=== PATIENT | male | born 1980 | race Caucasian/White ===

== ENCOUNTER → 2018-10-17 | Day surgery (SDC) | payer BC ==
[~2018-10-17] MED LIST: CEFTRIAXONE SOD 1 GM/NS 50 ML 50 ML IV ONE; DEXAMETHASONE SOD PHOS INJ 4 MG/ML VIAL ONE; FENTANYL CITRATE/PF 100MCG/2 ML INJ ONE; IOPAMIDOL 610MG/1ML 300 MG/ML VIAL IV ONE; LIDOCAINE HCL 2% LOCAL INJ 5 ML SDV VIAL INJ ONE; MIDAZOLAM HCL 2 MG/2 ML VIAL ONE; ONDANSETRON HCL INJ 2MG/ML 2ML 2 MG/ML VIAL ONE; PROPOFOL IV EMULSION 10 MG/ML 20 ML VIAL ONE; SEVOFLURANE INHAL SOLN 250 ML PEN BTL ONE
--- OUTSIDE RECORDS SUMMARY | 2018-10-17 12:16 | XMS REPORT | Continuity of Care Document ---
Author Author [facility] Interface Address Unknown Phone Unavailable Problems Problem Status Onset Date Classification Date Reported Comments Source Body mass index 30+ - obesity 05/03/2018 Diagnosis 05/03/2018 [facility] Acute tonsillitis 05/03/2018 Diagnosis 05/03/2018 [facility] Acute sinusitis 01/23/2018 Diagnosis 01/23/2018 [facility] Headache 01/23/2018 Diagnosis 01/23/2018 [facility] Acute pharyngitis 01/23/2018 Diagnosis 01/23/2018 [facility] Contact dermatitis due to poison cali 05/26/2017 Diagnosis 05/26/2017 [facility] Medications Medication Details Route Status Patient Instructions Ordering Provider Order Date Source Medrol (Nik) 4 mg tablets in a dose pack Medrol (Nik) 4 mg tablets in a dose pack Take by oral route as directed. Active [facility] Triamcinolone Acetonide 1 MG/ML Topical Cream triamcinolone acetonide 0.1 % topical cream APPLY A THIN LAYER TO THE AFFECTED AREA(S) BY TOPICAL ROUTE 2 TIMES PER DAY Active [facility] Zyrtec Zyrtec Active [facility] Amoxicillin 875 MG / Clavulanate 125 MG Oral Tablet [Augmentin] Augmentin 875 mg-125 mg tablet Take 1 tablet twice a day by oral route as directed for 10 days. Active [facility] Amoxicillin 875 MG Oral Tablet amoxicillin 875 mg tablet Take 1 tablet every 12 hours by oral route for 10 days. Active [facility] Allergies, Adverse Reactions, Alerts Substance Category Reaction Severity Reaction type Status Date Reported Comments Source Iodine Allergy to substance 05/26/2017 [facility] Shellfish Derived Allergy to substance 05/26/2017 [facility] Immunizations Immunization Date Given Site Status Last Updated Comments Source influenza, injectable, quadrivalent 04/23/2017 completed [facility] Results Order Name Results Value Reference Range Date Interpretation Comments Source Influenza A negative 05/03/2018 [facility] Influenza B negative 05/03/2018 [facility] RESULT negative 05/03/2018 [facility] RESULT negative 05/03/2018 [facility] SWAB LOCATION Left and Right tonsillar pillars 05/03/2018 [facility] RESULT negative 01/23/2018 [facility] SWAB LOCATION Left and Right tonsillar pillars 01/23/2018 [facility] Vital Signs Vital Sign Value Date Comments Source Diastolic (mm Hg) 70 05/03/2018 [facility] Height 76 05/03/2018 [facility] Systolic (mm Hg) 118 05/03/2018 [facility] Weight 290 05/03/2018 [facility] Diastolic (mm Hg) 78 01/23/2018 [facility] Height 76 01/23/2018 [facility] Systolic (mm Hg) 118 01/23/2018 [facility] Weight 290 01/23/2018 [facility] Diastolic (mm Hg) 80 05/26/2017 [facility] Height 76 05/26/2017 [facility] Systolic (mm Hg) 118 05/26/2017 [facility] Weight 283 05/26/2017 [facility] Encounters Location Location Details Encounter Type Encounter Number Reason For Visit Attending Provider ADM Date DC Date Status Source [place] [facility] Irena Morales CLINICAL PSYCHOLOGIST LICENSED, S: [address] [place] [address], Ph. [id number] Irena Morales 05/26/2017 [facility] [place] [facility] Dhara Puga, CLINICAL PSYCHOLOGIST LICENSED: [address] [place] [address], Ph. [id number] Dhara Puga 01/23/2018 [facility] [place] [facility] AGUSTO SanchezC: [address] [place] [address], Ph. [id number] Cleopatra Barkley 05/03/2018 [facility] Procedures Procedure Code Date Perfomer Comments Source
--- OUTSIDE RECORDS SUMMARY | 2018-10-17 12:16 | XMS REPORT | Encounter Summary ---
Author Organization Unknown Address [address] [place] [address] Phone [phone] Reason for Visit Medical Complaint Instructions 1. Acute pharyngitis rapid strep group A, throat sore throat: care instructions culture, respiratory Augmentin 875 mg-125 mg tablet 2. Body mass index 30+ - obesity body mass index: care instructions A healthy lifestyle: care instructions 3. Headache headache: care instructions 4. Acute sinusitis sinusitis: care instructions Discussion Note: None recorded. Plan of Care Reminders Provider Appointments None recorded. Lab Rapid Strep Group a, Throat 01/23/2018 [facility] Culture, Respiratory 01/23/2018 [facility] Referral None recorded. Procedures None recorded. Surgeries None recorded. Imaging None recorded. Medications Name Start Date Augmentin 875 mg-125 mg tablet Take 1 tablet twice a day by oral route as directed for 10 days. Zyrtec Medications Administered None recorded. Vitals Height Weight BMI Blood Pressure 6 ft 4 in 290 lbs 35.3 kg/m2 118/78 mm[Hg] Lab Results Date Name Specimen Result Interpretation Description Value Range Status Address Rapid Strep Group a, Throat Result negative [facility]: [address] [place] [address] Swab Location Left and Right tonsillar pillars [facility]: [address] [place] [address] Allergies Code Code System Name Reaction Severity Status Onset 5933 RxNorm Iodine Active Shellfish Derived Active Problems None recorded. Procedures None recorded. 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 History of Present Illness Throat-Oral Complaint Reported By: Patient HPI: Location: throat. Quality: sore throat. Severity: pain level 4/10. Duration: 4 days. Onset/Timing: sudden. Context: no sick contacts, no foreign travel, non-smoker. Associated Symptoms: no fever, no body aches, no sputum production, no shortness of breath, no wheezing, no change in number of pillows needed to sleep at night, no sweats, no significant weight gain, no significant weight loss, no morning cough, no vomiting, no diarrhea, no rash, no nausea, headache, sore throat Headache Reported By: Patient HPI: Location: bilateral, frontal, temporal. Quality: not the worst headache ever, similar to previous headaches. Severity: pain level 4/10. Duration: intermittent. Onset/Timing: better, intermittent episodes lasting1/2 a day; occurs twice a week, accompanied by visual aura. Context: not related to trauma. MIDAS: Migraine Disability Assessment 1. On how many days in the last 3 months did you miss work or school because of your headaches? 0, 2. How many days in the last 3 months was your productivity at work or school reduced by half or more because of your headaches? 10+ (Do not include days counted in question 1), 3. On how many days in the last 3 months did you not do household work because of headaches? 10+, 4. How many days in the last 3 months was your productivity in household work reduced by half or more because of your headaches? 10+ (Do not include days counted in Question 3.), 5. On how many days in the last 3 months did you miss family, social or leisure activities because of your headaches? 10+, Score (add 1-5): 6 to 10 - Grade 2 - Mild or infrequent disability, A. On how many days in the last three months did you have a headache? 10+, B. On a scale of 0 - 10, on average how painful were these headaches (where 0=no pain at all and 10=pain as bad as it can be)? 8. Modifying factors: OTC medication, sleep, rest. Associated Symptoms: no fever/chills, no muscle aches, no headache, no vomiting, no sensitivity to light, tearing/watery eyes, no confusion, no slurred speech, no double vision, normal feeling/sensation, no motor paralysis, no sleep disturbances, no hoarseness, no hearing loss, photophobia, with preceeding aura, dizziness, nosebleeds, sore throat Review of Systems:ROS as noted in the HPI Review of Systems None recorded. Physical Exam Adult Basic Reported By: Patient Constitutional: General Appearance: obese. Level of Distress: mild distress. Ambulation: ambulating normally Psychiatric: Mental Status: active and alert. Orientation: to time, to place, to person Eyes: Pupils: PERRLA. EOM: EOMI Zqs-Nfji-Rbyyf-Throat: Ears: no lesions on external ear, no outer ear tenderness, EACs clear, TMs clear. Hearing: no hearing loss. Nose: no lesions on external nose, nares patent, no septal deviation, nasal passages clear, no nasal discharge, sinus tenderness. Lips, Teeth, and Gums: no mouth or lip ulcers, no bleeding gums, normal dentition. Oropharynx: moist mucous membranes, no exudates, erythema, tonsils enlarged 1+ Neck: Neck: supple, FROM. Lymph Nodes: anterior cervical LAD Lungs: Respiratory effort: no dyspnea, no tachypnea, no use of accessory muscles, no intercostal retractions. Auscultation: breath sounds normal Cardiovascular: Heart Auscultation: RRR, no murmurs Musculoskeletal:: Joints, Bones, and Muscles: normal movement of all extremities Neurologic: Gait and Station: normal gait, normal station; stable gait, no c/o dizziness with position change. Sensation: grossly intact
--- OUTSIDE RECORDS SUMMARY | 2018-10-17 12:16 | XMS REPORT | Encounter Summary ---
Author Organization Unknown Address [address] [place] [address] Phone [phone] Reason for Visit Medical Complaint Instructions 1. Acute tonsillitis amoxicillin 875 mg tablet rapid strep group A, throat mononucleosis, heterophile Ab, blood rapid flu (A+B) 2. Body mass index 30+ - obesity body mass index: care instructions Discussion Note: None recorded. Plan of Care Patient Instructions Try warm salt water gargles, throat lozenges, soups or tea with honey and/or lemon juice to soothe the throat. Take ibuprofen every 6 hours for fever, pain and/or swelling of throat. Change out your toothbrush tomorrow or when you start to feel better. Return to clinic if symptoms do not resolve in 1 week. Reminders Provider Appointments None recorded. Lab Rapid Strep Group a, Throat 05/03/2018 [facility] Mononucleosis, Heterophile Ab, Blood 05/03/2018 [facility] Rapid Flu (A+B) 05/03/2018 [facility] Referral None recorded. Procedures None recorded. Surgeries None recorded. Imaging None recorded. Medications Name Start Date amoxicillin 875 mg tablet Take 1 tablet every 12 hours by oral route for 10 days. Medications Administered None recorded. Vitals Height Weight BMI Blood Pressure 6 ft 4 in 290 lbs 35.3 kg/m2 118/70 mm[Hg] Lab Results Date Name Specimen Result Interpretation Description Value Range Status Address Rapid Flu (A+B) Influenza a negative [facility]: [address] [place] [address] Influenza B negative [facility]: [address] [place] [address] Mononucleosis, Heterophile Ab, Blood Result negative [facility]: [address] [place] [address] Rapid Strep Group a, Throat Result negative [facility]: [address] [place] [address] Swab Location Left and Right tonsillar pillars [facility]: [address] [place] [address] Allergies Code Code System Name Reaction Severity Status Onset 5933 RxNorm Iodine Active Shellfish Derived Active Problems No Known Problems Procedures None recorded. Vaccine List Vaccine Type influenza, injectable, quadrivalent 04/23/2017 Social History Smoking Status Never Smoker Past Encounters 05/03/2018 Acute Tonsillitis; Body Mass Index 30+ - Obesity Cleopatra Barkley PA-C: [address] [place] [address], Ph. History of Present Illness Throat-Oral Complaint Reported By: Patient HPI: Location: throat. Quality: sore throat. Duration: 5 days. Context: no sick contacts, no foreign travel, non-smoker. Associated Symptoms: no sputum production, no shortness of breath, no wheezing, no change in number of pillows needed to sleep at night, no sweats, no significant weight gain, no significant weight loss, no morning cough, no vomiting, no diarrhea, no rash, no nausea, sore throat Review of Systems Basic Reported By: Patient Constitutional: Constitutional: no fever Eyes: Eyes: no eye complaints Djco-Jbcz-Iatpj-Throat: Ears: no ear complaints. Nose: no nose/sinus problems. Mouth/Throat: no bleeding gums, no mouth complaints, no teeth problems, sore throat Cardiovascular: Cardiovascular: no chest pain, no shortness of breath, no known heart murmur Respiratory: Respiratory: no cough, no wheezing, no shortness of breath Gastrointestinal: Gastrointestinal: no abdominal pain, no vomiting / diarrhea Genitourinary: Genitourinary: no urinary complaints, no discharge Musculoskeletal: Musculoskeletal: no muscle aches, no muscle weakness, no arthralgias/joint pain, no back pain Skin: Skin: no abnormal / changing mole, no jaundice, no rashes Neurologic: Neurologic: no loss of consciousness, no weakness, no numbness, no seizures, no dizziness, no headaches Physical Exam Adult Basic, Adult Female Complete, Adult Male Complete Reported By: Patient Constitutional: General Appearance: healthy-appearing, well-nourished, well-developed. Level of Distress: NAD. Ambulation: ambulating normally Psychiatric: Mental Status: active and alert. Orientation: to time, to place, to person Eyes: Lids and Conjunctivae: non-injected, no discharge, no pallor Aci-Vrat-Jkbhi-Throat: Ears: no lesions on external ear, no outer ear tenderness, EACs clear, TMs clear. Hearing: no hearing loss. Nose: no lesions on external nose, nares patent, no septal deviation, nasal passages clear, no sinus tenderness, no nasal discharge. Lips, Teeth, and Gums: no mouth or lip ulcers, no bleeding gums, normal dentition. Oropharynx: moist mucous membranes, no exudates, erythema, tonsils enlarged 1+ Neck: Neck: supple. Lymph Nodes: no supraclavicular LAD, anterior cervical LAD Lungs: Respiratory effort: no dyspnea, no tachypnea, no use of accessory muscles, no intercostal retractions. Percussion: no dullness, flatness, or hyperresonance. Auscultation: breath sounds normal Cardiovascular: Heart Auscultation: RRR, no murmurs. Neck vessels: no carotid bruits Skin: Inspection and palpation: no rash
--- OUTSIDE RECORDS SUMMARY | 2018-10-17 12:16 | XMS REPORT | Encounter Summary ---
Author Organization Unknown Address [address] [place] [address] Phone [phone] Reason for Visit Medical Complaint Instructions 1. Contact dermatitis due to poison shantel Medrol (Nik) 4 mg tablets in a dose pack triamcinolone acetonide 0.1 % topical cream Discussion Note avoid allergy triggers. Zyrtec daily. may use triamcinolone cream or Aveeno oatmeal baths to soothe skin. Patient educational handouts: No information available. Plan of Care Reminders Provider Appointments None recorded. Lab None recorded. Referral None recorded. Procedures None recorded. Surgeries None recorded. Imaging None recorded. Medications Name Start Date Medrol (Nik) 4 mg tablets in a dose pack Take by oral route as directed. triamcinolone acetonide 0.1 % topical cream APPLY A THIN LAYER TO THE AFFECTED AREA(S) BY TOPICAL ROUTE 2 TIMES PER DAY Zyrtec Medications Administered None recorded. Vitals Height Weight BMI Blood Pressure 6 ft 4 in 283 lbs 34.4 kg/m2 118/80 mm[Hg] Lab Results None recorded. Allergies Code Code System Name Reaction Severity Status Onset 5933 RxNorm Iodine Active Shellfish Derived Active Problems None recorded. Procedures None recorded. Vaccine List None recorded. 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 History of Present Illness Gabr-Fthfpuh-Bgszx-Skin Lesion-Bite 1 Reported By: Patient HPI: Location: arms, legs. Quality: itchy, generalized. Severity: worsening, moderate. Duration: has noted for <1 week. Onset/Timing: abrupt onset. Context: ; exposure to poison shantel. pt history of allergy. Aggravating factors: nothing makes it worse. Alleviating factors: ; cortisone cream. Associated Symptoms: no fever/chills Review of Systems Basic Reported By: Patient Constitutional: Constitutional: no fever Cardiovascular: Cardiovascular: no chest pain, no shortness of breath, no known heart murmur Respiratory: Respiratory: no cough, no wheezing, no shortness of breath Skin: Skin: rash, itching Physical Exam Adult Basic Reported By: Patient Constitutional: General Appearance: healthy-appearing, well-nourished, well-developed. Level of Distress: NAD. Ambulation: ambulating normally Psychiatric: Mental Status: active and alert Lungs: Respiratory effort: no dyspnea. Auscultation: breath sounds normal Cardiovascular: Heart Auscultation: RRR, no murmurs Skin: Inspection and palpation: rash
[2018-10-17 15:09] VITALS: BP 129/91
--- NOTE | 2018-10-17 17:26 | Operative Report ---
DATE OF PROCEDURE: 10/17/2018 SURGEON: Iglesia Schwartz MD PREOPERATIVE DIAGNOSIS: Urethral stricture disease. POSTOPERATIVE DIAGNOSIS: Urethral stricture disease. PROCEDURES: 1. Retrograde urethrogram. 2. Cysto Urethral calibration dilation. ANESTHESIA: General. ESTIMATED BLOOD LOSS: Minimal. COMPLICATION: None. INDICATIONS: Mr. Greenfield is a very pleasant 37-year-old male patient with a history of urethral surgery as a child, who now presents with difficulty urinating, straining, gross hematuria. He and I had a long discussion about alternatives, risks, and benefits, he elected to proceed. PROCEDURE IN DETAIL: After informed consent was obtained, the patient was taken to the operative suite. He was placed supine on the operating table. He underwent general anesthesia by Anesthesia Service. He was placed in dorsal lithotomy position, and sterilely prepped and draped in a standard fashion for cystoscopy. An attempt was made to insert a 21-Bahraini cystoscope, that has failed . Calibrated 14 fr dilated 22 fr. Distal urethra was dilated with sound and a 21-Bahraini cystoscope could be introduced. A retrograde urethrogram was performed revealing otherwise normal pendulous urethra. However, in the bulb, there was a discrete stricture and proximal to this, a blind-ending sac. Despite aggressive injection of contrast, I could not get any contrast to flow proximal to this. At this time, through the cystoscope, I attempted to insert both angled tip and olive tip filiforms, which stopped at the area of the blind-ending passage. With the inability to access proximal urethra and the bladder, procedure was terminated. The patient was awakened from anesthesia and transported to recovery room with expectations of suprapubic tube placement and hopefully access from above. Iglesia Schwartz MD ES/MODL /[id number] MTDSummer
== END | disposition home or self-care (01) ==
LOC: OR 12:14
PROVIDERS: ATTEND Urology
DX: N35.912 Unspecified bulbous urethral stricture, male (principal); Z98.890 Other specified postprocedural states; I10 Essential (primary) hypertension; I86.1 Scrotal varices; K21.9 Gastro-esophageal reflux disease without esophagitis; Z91.19 Patient's noncompliance with other medical treatment and regimen; Z91.041 Radiographic dye allergy status; Z68.35 Body mass index [BMI] 35.0-35.9, adult
CPT/HCPCS: 52281; 74450; J0696; J1100; J2001; J2250; J2405; J2704; Q9967

== ENCOUNTER 2018-10-31 12:45 | Emergency (ER) | payer BC ==
[~2018-10-31] VITALS: Ht 193 cm; Wt 131.5 kg
--- OUTSIDE RECORDS SUMMARY | 2018-10-31 12:48 | XMS REPORT ---
Author Author [facility] Address Unknown Phone Unavailable Care Team Providers Care Field Services Manager Name Role Phone Eladio PERES Unavailable Unavailable SANDHYA GARCIA Unavailable Unavailable Problems This patient has no known problems. Allergies, Adverse Reactions, Alerts This patient has no known allergies or adverse reactions. Medications This patient has no known medications. 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 Serrano Pre-operative diagnosis: Urethral stricture, urinary retention Post-operative diagnosis: Urethral stricture, urinary retention Conscious Sedation: Versed 2 mg and Fentanyl 150 mcg intravenous. The patient's heart rate and pulse oximetry were continuously monitored by the interventional radiology nurse. Blood pressure was monitored at 5 minute intervals. Total intra service time for sedation: 25 minutes Additional Medications: 1 g cefazolin intravenous prior to skin prep; 25 mg diphenhydramine intravenous (patient reports history of shellfish allergy) Fluoroscopy time: 1.8 minutes Dose-area Product: 1283 cGycm2. Contrast used: 20 cc Isovue-300 Estimated blood loss: Less than 10 cc Specimens: Approximately 400 cc urine, discarded Implants: 18 Irish [place] tip balloon retention bladder catheter Complications: No immediate Blood products administered: None Condition at completion of procedure: Stable Disposition: Return to the emergency room for recovery DISCUSSION: Informed consent for the procedure was obtained after discussion of risks and benefits and documented in the medical record. The patient was placed in the supine position on the fluoroscopic table. The low anterior abdominal wall was prepped and draped in the standard sterile fashion. Preliminary sonographi c evaluation confirmed a suitable percutaneous approach to the distended urinary bladder. 1% lidocaine was infiltrated into the skin and subcutaneous tissues for local anesthesia. Then under continuous sonographic guidance, an 18-gauge needle was advanced into the urinary bladder. A permanent sonographic image was stored in the medical record. A 0.0 3 5-in. Amplatz Super Stiff wire was then advanced through the needle and coiled within the urinary bladder under fluoroscopic guidance. The needle was removed and the tract was sequentially dilated. Ultimately, a 22 Irish peel-away sheath was advanced over the wire into the urinary bladder under fluoroscopic guidance. The dilator of the sheath was removed and the catheter was advanced over the wire and through the peel-away sheath under fluoroscopic guidance. The retention balloon of the catheter was inflated with 10 cc sterile saline, and the peel-away sheath was broken and discarded. The wire was removed and the catheter was retracted to the anterior bladder wall. Appropriate position was confirmed by injection of dilute contrast material with operations support representative fluoroscopic images stored. The catheter was flushed copiously with sterile saline and connected to gravity drainage. The catheter was secured to the skin with silk suture and a sterile dressing was applied. The patient tolerated the procedure well without immediate complication. IMPRESSION: Successful placement of an 18 Irish, [place] tip balloon retention suprapubic bladder catheter under sonographic and fluoroscopic guidance. Signed by: Dr. Juanita Serrano M.D. on 10/23/2018 7:12 AM Dictated By: JUANITA SERRANO MD 1432 Transcribed By: QUANG on 10/30/18 1432 COPY TO: ELSIE PERES MD CT PELVIS WO 2018-10-21 12:18:00 [place] [address] Patient Name: TALA MARTINS MR #: [id number] : 1980 Age/Sex: 37/M Req #: [id number] Adm Physician: Ordered by: ELSIE PERES MD Report #: [id number] Location: ER Room/Bed: Procedure: [id number] CT/CT PELVIS WO Exam Date: 10/21/18 Exam Time: 1130 REPORT STATUS: Signed EXAMINATION: CT of the abdomen and pelvis without contrast. TECHNIQUE: Helical CT images of the pelvis were performed from the iliac crest to the lesser trochanters without contrast. Coronal and sagittal reformatted images were obtained. COMPARISON: None.Dose modulation, iterative reconstruction, and/or weight based adjustment of the mA/kV was utilized to reduce the radiation dose to as low as reasonably achievable. CLINICAL HISTORY:Pain DISCUSSION: PELVIC ORGANS/BLADDER: The bladder is normal. PERITONEUM/RETROPERITONEUM: No free air or fluid. LYMPH NODES: No intra-abdominal, retroperitoneal, pelvic or inguinal lymphadenopathy. VESSELS: Unremarkable GI TRACT: No distention or wall thickening. BONES AND SOFT TISSUE: No bony destructive lesions. No soft tissue abnormalities. IMPRESSION: Unremarkable CT of the pelvis Signed by: Dr. Tiffani Anglin M.D. on 10/21/2018 12:20 PM Dictated By: TIFFANI ANGLIN MD 1220 Transcribed By: QUANG on 10/21/18 1220 COPY TO: ELSIE PERES MD
[2018-10-31] MEDS ORDERED: KEFLEX500 MG PO (13:17)
[2018-10-31] MEDS ORDERED: CEFAZOLIN SOD 500 MG VIAL IM SCH (13:30)
== END 2018-10-31 13:30 | disposition home or self-care (01) ==
LOC: FSED 12:45
DX: K57.32 Diverticulitis of large intestine without perforation or abscess without bleeding (principal)
CPT/HCPCS: 87071; 87205; 99283

== ENCOUNTER 2018-11-10 | Emergency (ER) | payer BC ==
[~2018-11-10] VITALS: Ht 193 cm; Wt 131.5 kg
[~2018-11-10] MED LIST changes: -CEFTRIAXONE SOD 1 GM/NS 50 ML 50 ML IV ONE; -DEXAMETHASONE SOD PHOS INJ 4 MG/ML VIAL ONE; -FENTANYL CITRATE/PF 100MCG/2 ML INJ ONE; -IOPAMIDOL 610MG/1ML 300 MG/ML VIAL IV ONE; +KEFLEX500 MG PO; -LIDOCAINE HCL 2% LOCAL INJ 5 ML SDV VIAL INJ ONE; -MIDAZOLAM HCL 2 MG/2 ML VIAL ONE; -ONDANSETRON HCL INJ 2MG/ML 2ML 2 MG/ML VIAL ONE; -PROPOFOL IV EMULSION 10 MG/ML 20 ML VIAL ONE; -SEVOFLURANE INHAL SOLN 250 ML PEN BTL ONE
[2018-11-10] MEDS ORDERED: CIPROFLOXACIN 500 MG TAB PO SCH (01:00)
== END 2018-11-10 01:10 | disposition home or self-care (01) ==
LOC: FSED
DX: L03.311 Cellulitis of abdominal wall (principal)
CPT/HCPCS: 99283